=== PATIENT | male | born 1965 | race Caucasian/White ===

== ENCOUNTER 2019-10-12 23:22 | Emergency (ER) | payer SELFPAY ==
[~2019-10-12] VITALS: Ht 180.3 cm; Wt 107.6 kg
[2019-10-13] MEDS ORDERED: KETOROLAC 30MG/ML VIAL IM ONE (06:15)
[2019-10-13 07:13] VITALS: BP 138/92
[2019-10-13] MEDS ORDERED: LIDOCAINE HCL/EPINEPHRINE 1%-EPI 1:100,000 30 ML VIAL INFIL ONE (07:45)
[2019-10-13] MEDS ORDERED: SULFAMETHOXAZOLE/TRIMETHOPRIM 800/160MG TABLET PO ONE (07:45)
[2019-10-13] MEDS ORDERED: LIDOCAINE HCL/EPINEPHRINE 1%-EPI 1:100,000 20 ML VIAL INFIL NR (08:15)
== END 2019-10-13 10:00 | disposition home or self-care (01) ==
LOC: ER 23:38
DX: L02.31 Cutaneous abscess of buttock (principal); Z87.891 Personal history of nicotine dependence; Z88.0 Allergy status to penicillin
CPT/HCPCS: 10060; 87070; 87205; 96372; 99283; J1885; J3490

== ENCOUNTER 2019-10-15 09:43 | Emergency (ER) | payer SELFPAY ==
[~2019-10-15] VITALS: Ht 182.9 cm; Wt 105.5 kg
[2019-10-15 10:05] VITALS: BP 146/82
== END 2019-10-15 11:55 | disposition home or self-care (01) ==
LOC: ER 10:24
DX: K61.1 Rectal abscess (principal); Z88.0 Allergy status to penicillin
CPT/HCPCS: 99282